=== PATIENT | male | born 1975 | race Two or more races ===

== ENCOUNTER 2017-03-08 13:18 | Emergency (ER) | payer MEDICAID ==
[2017-03-08 13:30] VITALS: BP_SYST 152
[2017-03-08] MEDS ORDERED: KETOROLAC TROMETHAMINE 60 MG/2 ML VIAL IM ONE (14:15)
[2017-03-08] MEDS ORDERED: DEXAMETHASONE SOD PHOSPHATE 10 MG/ML VIAL IM ONE (14:15)
[2017-03-08 14:25] VITALS: BP_SYST 142
[2017-03-09] MEDS ORDERED: ALBUTEROL SULFATE 0.083% 2.5 MG/3 ML VIAL.NEB INH ONE (00:59)
== END 2017-03-08 14:25 | disposition home or self-care (01) ==
LOC: SED 13:18
DX: M54.17 Radiculopathy, lumbosacral region (principal); R03.0 Elevated blood-pressure reading, without diagnosis of hypertension; F17.210 Nicotine dependence, cigarettes, uncomplicated; Z71.6 Tobacco abuse counseling
CPT/HCPCS: 96372; 99284; J1100; J1885

== ENCOUNTER 2017-03-18 02:04 | Emergency (ER) | payer MEDICAID ==
[~2017-03-18] VITALS: Ht 182.9 cm; Wt 92.5 kg
[2017-03-18 02:19] VITALS: BP_SYST 146
--- NOTE | 2017-03-18 02:54 | NUR ---
Patient to ER bed 8 to gown for evaluation. Side rails up. Report given to LISA BALLESTEROS.
--- NOTE | 2017-03-18 03:00 | NUR ---
Pt stated he is having lower back pain that radiates to the lower leg. Will continue to monitor. No distress noted. AAOx4.
--- NOTE | 2017-03-18 03:10 | NUR ---
ER Dr. Palmer at bedside examining patient.
[2017-03-18] MEDS: KETOROLAC TROMETHAMINE 60 MG/2 ML VIAL IM ONE (03:27)
[2017-03-18 04:10] VITALS: BP_SYST 146
--- NOTE | 2017-03-18 04:10 | NUR ---
Patient given written and verbal discharge instructions and verbalizes understanding. ER MD discussed with patient the results and treatment provided. Patient in stable condition. ID arm band removed. Rx of [place] and Flexeril given. Patient educated on pain management and to follow up with PMD. Pain Scale 0/10. Opportunity for questions provided and answered.
--- NOTE | 2017-03-19 03:00 | NUR ---
Note artem in EDM - 03/19/17 at 0726 by FELECIA Pt stated he is having lower back pain that radiates to the lower leg. Will continue to monitor. No distress noted. AAOx4.
== END 2017-03-18 07:00 | disposition home or self-care (01) ==
LOC: SED 02:04
DX: M54.42 Lumbago with sciatica, left side (principal)
CPT/HCPCS: 96372; 99283; J1885